=== PATIENT | female | born 1985 | race Caucasian/White ===

== ENCOUNTER 2018-06-22 07:23 | Emergency (ER) | payer SELFPAY ==
[~2018-06-22] VITALS: Ht 157.5 cm; Wt 72.6 kg
[2018-06-22 08:13] VITALS: BP 176/87
== END 2018-06-22 11:02 | disposition home or self-care (01) ==
LOC: ER 07:23
DX: J02.9 Acute pharyngitis, unspecified (principal); Z53.29 Procedure and treatment not carried out because of patient's decision for other reasons